=== PATIENT | female | born 1980 | race Asian ===

== ENCOUNTER 2017-01-12 20:02 | Emergency (ER) | payer OTHER ==
[~2017-01-12] VITALS: Ht 154.9 cm; Wt 50.0 kg
[2017-01-12] MEDS ORDERED: DiphenhydrAMINE HCL 25 MG CAPSULE PO ONE (21:00)
[2017-01-12] MEDS ORDERED: PredniSONE 20 MG TABLET PO ONE (21:00)
[2017-01-12 21:20] VITALS: BP 128/88
== END 2017-01-12 21:24 | disposition home or self-care (01) ==
LOC: EMS 20:04
DX: T78.40XA Allergy, unspecified, initial encounter (principal); Y92.89 Other specified places as the place of occurrence of the external cause
CPT/HCPCS: 99283; J7512